=== PATIENT | male | born 1975 | race Hispanic/Latino ===

== ENCOUNTER 2017-12-02 13:31 | Emergency (ER) | payer OTHER | END 2017-12-02 15:01 | disposition home or self-care (01) | LOC: EDH 13:31 | DX: J06.9 Acute upper respiratory infection, unspecified (principal) | CPT/HCPCS: 87804; 87880 ==

== ENCOUNTER 2018-03-21 17:12 | Emergency (ER) | payer OTHER ==
[2018-03-21 17:49] LABS: BASOPHILS % (AUTO) 0.2 % (0.0-5.0); EOSINOPHILS % (AUTO) 4.8 % (0.0-8.0); HEMATOCRIT 44.7 % (42-54); LYMPHOCYTES % (AUTO) 30.6 % (21.0-51.0); MEAN CORPUSCULAR HEMOGLOBIN 32.4 pg (27.0-33.0); MEAN CORPUSCULAR HGB CONC 35.3 g/dL (32.0-36.0); MEAN CORPUSCULAR VOLUME 91.9 fL (79-99); MONOCYTES % (AUTO) 7.3 % (3.0-13.0); NEUTROPHILS % (AUTO) 57.1 % (40.0-77.0); NUCLEATED RED BLOOD CELLS 0.1 % (0.0-0.19); PLATELET COUNT (AUTO) 294 K/uL (130-400); RED BLOOD CELL COUNT(AUTO) 4.86 MIL/uL (4.50-6.20); WHITE BLOOD COUNT (AUTO) 6.1 K/uL (4.8-10.8)
[2018-03-21 18:01] LABS: INR 0.95 (0.85-1.15); PARTIAL THROMBOPLASTIN TIME 26.2 SEC (26.3-35.5)
[2018-03-21 18:02] LABS: CREATININE 1.1 mg/dL (0.5-1.5); POTASSIUM 3.9 mmol/L (3.5-5.1)
[2018-03-21 18:03] LABS: APPEARANCE,URINE Clear (CLEAR); BILIRUBIN,URINE Negative (NEGATIVE); COLOR,URINE Yellow (YELLOW); GLUCOSE, URINE (UA) Negative (NEGATIVE); KETONES,URINE Negative (NEGATIVE); LEUKOCYTE ESTERASE ,URINE Negative (NEGATIVE); NITRATE,URINE Negative (NEGATIVE); OCCULT BLOOD,URINE Negative (NEGATIVE); PH,URINE 6.5 (5.0-8.0); PROTEIN,URINE Negative (NEGATIVE)
[2018-03-21 18:06] LABS: ALBUMIN 3.6 g/dL (3.5-5.0); BILIRUBIN,TOTAL 0.6 mg/dL (0.2-1.0); TOTAL PROTEIN, SERUM 7.7 g/dL (6.0-8.3)
== END 2018-03-21 18:46 | disposition home or self-care (01) ==
LOC: EDH 17:12
DX: S39.011A Strain of muscle, fascia and tendon of abdomen, initial encounter (principal); R07.89 Other chest pain; V59.49XA Driver of pick-up truck or van injured in collision with other motor vehicles in traffic accident, initial encounter; Y93.89 Activity, other specified; Y92.89 Other specified places as the place of occurrence of the external cause; Y99.8 Other external cause status
CPT/HCPCS: 36415; 71045; 80053; 81003; 82550; 83690; 84484; 85025; 85610; 85730; 93005

== ENCOUNTER 2020-07-20 05:12 | Observation (INO) | payer OTHER ==
[~2020-07-20] VITALS: Ht 170.2 cm; Wt 99.2 kg
[2020-07-20] MEDS ORDERED: THIAMINE HCL 100 MG/ML 2ML VIAL ONE (05:37)
[2020-07-20] MEDS ORDERED: NITROGLYCERIN 1GM/1 INCH PACKET TD ONE (05:38)
[2020-07-20] MEDS ORDERED: IPRATROPIUM/ALBUTEROL SULFATE 3 ML SOLUTION IH ONE (05:39)
[2020-07-20 05:51] LABS: BASOPHILS % (AUTO) 0.6 % (0.0-5.0); EOSINOPHILS % (AUTO) 3.3 % (0.0-8.0); LYMPHOCYTES % (AUTO) 54.8 % (21.0-51.0); MEAN CORPUSCULAR HEMOGLOBIN 31.1 pg (27.0-33.0); MEAN CORPUSCULAR HGB CONC 35.1 g/dL (32.0-36.0); MEAN CORPUSCULAR VOLUME 88.6 fL (79-99); MONOCYTES % (AUTO) 6.4 % (3.0-13.0); NEUTROPHILS % (AUTO) 34.6 % (40.0-77.0); PLATELET COUNT (AUTO) 227 K/uL (130-400); RED BLOOD CELL COUNT(AUTO) 4.63 MIL/uL (4.50-6.20); RED CELL DISTRIBUTION WIDTH 12.8 % (11.0-15.5); WHITE BLOOD COUNT (AUTO) 6.6 K/uL (4.8-10.8)
[2020-07-20 06:07] LABS: INR 1.07 (0.85-1.15); PROTHROMBIN TIME 11.6 SEC (9.6-11.6)
[2020-07-20 06:08] LABS: PARTIAL THROMBOPLASTIN TIME 26.5 SEC (26.3-35.5)
[2020-07-20 06:25] LABS: AMYLASE 63 U/L (25-115); LIPASE 67 U/L (114-286)
[2020-07-20] MEDS ORDERED: ASPIRIN 325 MG TABLET ONE ×2 (06:27→08:33)
[2020-07-20 06:34] LABS: ALCOHOL, BLOOD 298 mg/dL (0-10); CREATINE KINASE, TOTAL 493 U/L (21-232)
[2020-07-20 06:36] LABS: APPEARANCE,URINE Clear (CLEAR); BILIRUBIN,URINE Negative (NEGATIVE); COLOR,URINE Yellow (YELLOW); GLUCOSE, URINE (UA) Negative (NEGATIVE); KETONES,URINE Negative (NEGATIVE); LEUKOCYTE ESTERASE ,URINE Negative (NEGATIVE); NITRATE,URINE Negative (NEGATIVE); OCCULT BLOOD,URINE Negative (NEGATIVE); PROTEIN,URINE Negative (NEGATIVE); UROBILINOGEN,URINE 0.2 mg/dL (0.2-1.0)
[2020-07-20 06:57] LABS: AMPHET/METH SCREEN,URINE NEGATIVE (NEGATIVE); BARBITURATE SCREEN, URINE NEGATIVE (NEGATIVE); BENZODIAZEPINES SCREEN,URINE NEGATIVE (NEGATIVE); CANNABINOID SCREEN,URINE NEGATIVE (NEGATIVE); COCAINE SCREEN,URINE NEGATIVE (NEGATIVE); OPIATE SCREEN,URINE NEGATIVE (NEGATIVE); PHENCYCLIDINE SCREEN,URINE NEGATIVE (NEGATIVE)
[2020-07-20] MEDS ORDERED: DiphenhydrAMINE HCL 50 MG/ML VIAL IV PRN (07:45)
[2020-07-20] MEDS: SODIUM CHLORIDE 0.9% 1000ML 1,000 ML IV SCH ×2 (07:45→21:04)
[2020-07-20] MEDS ORDERED: ACETAMINOPHEN 325 MG TAB PO PRN (07:45)
[2020-07-20] MEDS ORDERED: MAG HYDROX/AL HYDROX/SIMETH ES 30 ML SUSP UDCUP PO PRN (07:45)
[2020-07-20] MEDS ORDERED: DIPHENHYDRAMINE HCL 25 MG CAPSULE PO PRN (07:45)
[2020-07-20] MEDS ORDERED: ONDANSETRON HCL 4 MG/2 ML VIAL IV PRN (07:45)
[2020-07-20] MEDS ORDERED: NITROGLYCERIN 0.4 MG SL TAB SL PRN (07:45)
[2020-07-20] MEDS ORDERED: GUAIFENESIN-DM 200/20 MG 10 ML PO PRN (07:45)
[2020-07-20] MEDS ORDERED: LACTULOSE 20 GM/30 ML UDCUP PO PRN (07:45)
[2020-07-20] MEDS ORDERED: METOPROLOL TARTRATE 25 MG TAB ONE (08:34)
[2020-07-20] MEDS ORDERED: ENOXAPARIN SODIUM 40 MG/0.4 ML SYRINGE SQ ONE (08:34)
[2020-07-20 08:59] LABS: ALBUMIN 3.5 g/dL (3.5-5.0); BILIRUBIN,TOTAL 0.3 mg/dL (0.2-1.0); CREATININE 0.9 mg/dL (0.5-1.5); POTASSIUM 3.3 mmol/L (3.5-5.1); TOTAL PROTEIN, SERUM 6.8 g/dL (6.0-8.3)
[2020-07-20] MEDS: METOPROLOL TARTRATE 25 MG TAB PO SCH ×2 (09:00→21:03)
[2020-07-20] MEDS: ENOXAPARIN SODIUM 40 MG/0.4 ML SYRINGE SQ SCH (09:00)
[2020-07-20] MEDS: ASPIRIN 325 MG TABLET PO SCH (09:00)
[2020-07-20 10:09] VITALS: BP 113/71
[2020-07-20 12:02] VITALS: BP 92/59
[2020-07-20 16:00] VITALS: BP 106/68
[2020-07-20 16:03] LABS: CREATINE KINASE, TOTAL 343 U/L (21-232); MYOGLOBIN 42 ng/mL (10-92); TROPONIN I < 0.04 ng/mL (0.00-0.06)
[2020-07-20] MEDS: ACETAMINOPHEN 325 MG TAB PO PRN (16:43)
[2020-07-20] MEDS ORDERED: POTASSIUM CHLORIDE 10% ELIXIR 20 MEQ/15 ML UDCUP PO PRN (17:00)
[2020-07-20] MEDS: POTASSIUM CHLORIDE 20 MEQ ERTAB PO PRN (18:31)
[2020-07-20 19:44] LABS: CREATINE KINASE, TOTAL 328 U/L (21-232); MYOGLOBIN 45 ng/mL (10-92); TROPONIN I < 0.04 ng/mL (0.00-0.06)
[2020-07-20 19:54] VITALS: BP 136/77
[2020-07-20 22:35] LABS: CREATINE KINASE, TOTAL 303 U/L (21-232); MYOGLOBIN 38 ng/mL (10-92); TROPONIN I < 0.04 ng/mL (0.00-0.06)
[2020-07-20 23:31] VITALS: BP 137/91
[2020-07-21 03:36] VITALS: BP 122/81
[2020-07-21 06:45] LABS: BASOPHILS % (AUTO) 0.6 % (0.0-5.0); EOSINOPHILS % (AUTO) 4.7 % (0.0-8.0); HEMATOCRIT 38.6 % (42-54); LYMPHOCYTES % (AUTO) 35.3 % (21.0-51.0); MEAN CORPUSCULAR HGB CONC 34.5 g/dL (32.0-36.0); MEAN CORPUSCULAR VOLUME 92.8 fL (79-99); MONOCYTES % (AUTO) 11.2 % (3.0-13.0); NEUTROPHILS % (AUTO) 47.8 % (40.0-77.0); PLATELET COUNT (AUTO) 198 K/uL (130-400); RED BLOOD CELL COUNT(AUTO) 4.16 MIL/uL (4.50-6.20); RED CELL DISTRIBUTION WIDTH 13.3 % (11.0-15.5); WHITE BLOOD COUNT (AUTO) 4.7 K/uL (4.8-10.8)
[2020-07-21 07:04] LABS: ALBUMIN 3.2 g/dL (3.5-5.0); BILIRUBIN,TOTAL 0.6 mg/dL (0.2-1.0); CREATININE 0.9 mg/dL (0.5-1.5); POTASSIUM 4.2 mmol/L (3.5-5.1); TOTAL PROTEIN, SERUM 6.5 g/dL (6.0-8.3)
[2020-07-21 07:56] VITALS: BP 115/73
[2020-07-21] MEDS: ASPIRIN 325 MG TABLET PO SCH (09:08)
[2020-07-21] MEDS: ACETAMINOPHEN 325 MG TAB PO PRN (09:08)
[2020-07-21] MEDS: ENOXAPARIN SODIUM 40 MG/0.4 ML SYRINGE SQ SCH (09:10)
[2020-07-21] MEDS ORDERED: CHLORDIAZEPOXIDE HCL 25 MG CAP PO PRN (10:00)
[2020-07-21] MEDS ORDERED: PHARMACY COMMUNICATION MISC PRN (10:00)
[2020-07-21 11:23] VITALS: BP 133/92
[2020-07-21] MEDS: THIAMINE HCL 100 MG TABLET PO SCH (13:45)
[2020-07-21] MEDS: FOLIC ACID 1 MG TABLET PO SCH (13:45)
[2020-07-21 16:00] VITALS: BP 134/87
[2020-07-21 19:52] VITALS: BP_SYST 113; BP_SYST 146; BP_DIAS 55; BP_DIAS 89
[2020-07-21 23:43] VITALS: BP 152/88
[2020-07-22 03:49] LABS: BASOPHILS % (AUTO) 0.8 % (0.0-5.0); EOSINOPHILS % (AUTO) 7.2 % (0.0-8.0); HEMATOCRIT 40.4 % (42-54); LYMPHOCYTES % (AUTO) 49.9 % (21.0-51.0); MEAN CORPUSCULAR HEMOGLOBIN 31.1 pg (27.0-33.0); MEAN CORPUSCULAR HGB CONC 34.2 g/dL (32.0-36.0); NEUTROPHILS % (AUTO) 30.7 % (40.0-77.0); PLATELET COUNT (AUTO) 209 K/uL (130-400); RED BLOOD CELL COUNT(AUTO) 4.44 MIL/uL (4.50-6.20); RED CELL DISTRIBUTION WIDTH 12.9 % (11.0-15.5)
[2020-07-22 03:51] VITALS: BP 125/80
[2020-07-22 04:12] LABS: ALBUMIN 3.2 g/dL (3.5-5.0); BILIRUBIN,TOTAL 0.4 mg/dL (0.2-1.0); POTASSIUM 3.8 mmol/L (3.5-5.1); TOTAL PROTEIN, SERUM 6.8 g/dL (6.0-8.3)
[2020-07-22] MEDS: POTASSIUM CHLORIDE 20 MEQ ERTAB PO PRN (05:43)
[2020-07-22 07:00] VITALS: BP 143/99
[2020-07-22 07:20] LABS: CREATINE KINASE, TOTAL 168 U/L (21-232); MYOGLOBIN 38 ng/mL (10-92); TROPONIN I < 0.04 ng/mL (0.00-0.06)
[2020-07-22] MEDS: FOLIC ACID 1 MG TABLET PO SCH (08:27)
[2020-07-22] MEDS: THIAMINE HCL 100 MG TABLET PO SCH (08:27)
[2020-07-22] MEDS: ASPIRIN 325 MG TABLET PO SCH (08:27)
[2020-07-22] MEDS: ENOXAPARIN SODIUM 40 MG/0.4 ML SYRINGE SQ SCH (08:28)
[2020-07-22] MEDS ORDERED: THIAMINE HCL 100 MG TABLET PO SCH (09:00)
[2020-07-22] MEDS ORDERED: FOLIC ACID 1 MG TABLET PO SCH (09:00)
[2020-07-22] MEDS ORDERED: FOLI1 PO (09:33)
[2020-07-22] MEDS ORDERED: THIA100T91 PO (09:33)
== END 2020-07-22 11:52 | disposition home or self-care (01) ==
LOC: EDH 05:12 → EDHIP 05:13 → 4DH 09:56
PROVIDERS: ADMIT Family Medicine; ATTEND Family Medicine
DX: R07.89 Other chest pain (principal); M62.82 Rhabdomyolysis; E11.9 Type 2 diabetes mellitus without complications; I10 Essential (primary) hypertension; J45.20 Mild intermittent asthma, uncomplicated; R94.31 Abnormal electrocardiogram [ECG] [EKG]; F10.129 Alcohol abuse with intoxication, unspecified; Z91.19 Patient's noncompliance with other medical treatment and regimen; Y90.8 Blood alcohol level of 240 mg/100 ml or more; Z79.899 Other long term (current) drug therapy
CPT/HCPCS: 36415 ×3; 71045 ×2; 80053 ×3; 80305; 81003; 82150; 82550 ×5; 83690; 83874 ×4; 83880; 84484 ×7; 85025 ×3; 85378; 85610; 85730; 93005 ×5; 93306; 93356; 94640; 96360; 96361 ×2; 96372 ×2; 99285; G0378 ×51; J1650 ×3; J3411; J7030